=== PATIENT | female | born 1985 | race Caucasian/White ===

== ENCOUNTER 2019-03-20 12:40 | Inpatient (IN) | payer OTHER ==
[~2019-03-20 12:40] MED LIST: Glycopyrrolate 0.2 MG/ML 5 ML SYRINGE ONE; Lidocaine 1% PF 5 ML VIAL ONE; Ondansetron PF 4 MG/2 ML Vial ONE; PROPOFOL 200 MG/20 ML VIAL ONE; Rocuronium Bromide 10 MG/ML (10ML VIAL) ONE; Succinylcholine Chloride 20 MG/ML 10 ml SYRINGE FS ONE
[2019-03-20] MEDS ORDERED: Ketamine 50 MG/ML (10ML VIAL) ONE (12:43)
[2019-03-20] MEDS ORDERED: Adacel (T-DAP) 0.5 ML SYRINGE ONE (12:44)
[2019-03-20] MEDS ORDERED: Fentanyl 100 MCG/2 ML VIAL ONE ×4 (13:19→17:30)
[2019-03-20 13:40] LABS: ALT (SGPT) 11 U/L (8-55); AST (SGOT) 23 U/L (5-34); Albumin 4.3 g/dL (3.5-5.0); Alkaline Phosphatase 49 U/L (40-110); Anion Gap 18 mmol/L (10-20); BUN (Urea Nitrogen) 12 mg/dL (7.0-18.7); Bilirubin, Total 0.2 mg/dL (0.2-1.2); Calc. Creatinine Clearance 0 mL/min (70-130); Calcium 8.9 mg/dL (7.8-10.44); Carbon Dioxide 17 mmol/L (22-29); Chloride 107 mmol/L (98-107); Estimated GFR-MDRD 75; Globulin 3.1 g/dL (2.4-3.5); Glucose 83 mg/dL (70-105); Lipase 28 U/L (8-78); Potassium 3.9 mmol/L (3.5-5.1); Protein, Total 7.4 g/dL (6.0-8.3); Sodium 138 mmol/L (136-145)
[2019-03-20 13:42] LABS: #Eosinphils 0.1 thou/uL (0.0-0.7); #Lymphocytes 2.4 thou/uL (1.20-3.40); #Monocytes 1.1 thou/uL (0.11-0.59); #Neutrophils 9.3 thou/uL (1.40-6.50); %Basophils 0.3 % (0.0-1.0); %Lymphocytes 18.7 % (21.0-51.0); %Monocytes 8.4 % (0.0-10.0); %Neutrophils 71.7 % (42.0-75.0); Hemoglobin 14.6 g/dL (12.0-16.0); Mean Corpuscular HGB CONC 34.6 g/dL (32.0-36.0); Mean Corpuscular Hemoglobin 31.4 pg (27.0-31.0); Mean Corpuscular Volume 90.6 fL (78.0-98.0); Mean Platelet Volume 7.8 fL (7.4-10.4); Platelet Count 303 thou/uL (130-400); RBC Distribution Width 11.2 % (11.5-14.5); Red Blood Cell (RBC) Count 4.66 mill/uL (4.20-5.40); White Blood Cell (WBC) Count 12.9 thou/uL (4.8-10.8)
[2019-03-20] MEDS ORDERED: Ketorolac Tromethamine 30 MG/ML VIAL ONE (13:50)
--- NOTE | 2019-03-20 13:52 | RAD ---
Exam: Right ankle 3 views: HISTORY: Extensive fracture dislocation of the ankle tibiotalar joint with displaced medial malleolar fracture as well as a replaced comminuted fracture through the distal fibular diaphysis. Nondisplaced transverse fracture through the base of the fifth metatarsal. Impression: Very markedly displaced comminuted fracture dislocation of the tibiotalar joint. Comminuted fracture of the distal fibular diaphysis. Nondisplaced transverse fracture through the base of the fifth metatarsal.
[2019-03-20] MEDS ORDERED: Dextrose 5% in Water 1,000 ML IV PRN (13:58)
[2019-03-20] MEDS ORDERED: Dextrose 50% Abboject 50 ML SYRINGE SLOW IVP PRN (13:58)
[2019-03-20] MEDS ORDERED: Gentamicin 80 MG/2 ML VIAL ONE (13:58)
[2019-03-20] MEDS ORDERED: Promethazine HCl 25 MG/ML VIAL IVPB PRN (13:58)
[2019-03-20] MEDS ORDERED: hydrALAZINE 20 MG/ML VIAL SLOW IVP PRN (13:58)
[2019-03-20] MEDS ORDERED: Ondansetron PF 4 MG/2 ML Vial IVP PRN (13:58)
[2019-03-20] MEDS ORDERED: Sodium Chloride 0.9% 0 ML ONE ×2 (14:01→15:04)
[2019-03-20] MEDS ORDERED: Neomycin-Polymyxin 1 ML AMP ONE ×3 (14:04→15:34)
[2019-03-20] MEDS ORDERED: traMADol HCl 50 MG TAB PO PRN ×2 (14:04)
[2019-03-20] MEDS ORDERED: Cyclobenzaprine 10 MG TAB PO PRN (14:04)
[2019-03-20] MEDS ORDERED: Gentamicin Sulfate 80 MG in Premix Bag 1 BAG IVPB SCH (14:15)
[2019-03-20 15:01] LABS: BHCG - Serum Negative (NEGATIVE); Pregs Control Background? CLEAR/WHITE (CLR/WHITE); Pregs Control Bar Appear? YES (CONTROL BAR)
--- NOTE | 2019-03-20 15:23 | RAD ---
Chest one view: HISTORY: Injury from trauma FINDINGS: Heart size is within normal limits. The lungs are clear. No pneumothorax, pleural effusion or other a cute process. IMPRESSION: No significant acute intrathoracic disease.
[2019-03-20] MEDS ORDERED: Bupivacaine HCl 0.5%/Epinephrine 1:200,000/PF 30 ml Vial ONE (16:27)
[2019-03-20] MEDS ORDERED: Ondansetron HCl/PF 4 MG/2 ML Vial IVP PRN (17:09)
[2019-03-20] MEDS ORDERED: Morphine Sulfate 2 MG/ML SYRINGE SLOW IVP PRN (17:09)
[2019-03-20] MEDS ORDERED: PACU-Morphine 4MG/ML VIAL SLOW IVP PRN (17:09)
[2019-03-20] MEDS ORDERED: Meperidine HCl/PF 25 MG/ML VIAL SLOW IVP PRN (17:09)
[2019-03-20] MEDS ORDERED: Promethazine HCl 25 MG/ML VIAL IM PRN (17:09)
[2019-03-20] MEDS ORDERED: Promethazine HCl 25 MG/ML VIAL SLOW IVP PRN (17:09)
[2019-03-20] MEDS ORDERED: HYDROmorphone 2 MG/ML VIAL SLOW IVP PRN (17:09)
--- NOTE | 2019-03-20 17:10 | RAD ---
EXAM: XR Ankle Rt 3 View STANDARD PROVIDED CLINICAL HISTORY: ORIF COMPARISON: Exam earlier same date FINDINGS: Spot fluoroscopic intraoperative images demonstrate interval lateral side plate and screw fixation of distal fibular fracture and cannulated partially threaded lag screw fixation of medial malleolar fracture with associated improved alignment. IMPRESSION: As above.
[2019-03-20] MEDS ORDERED: Acetaminophen 1,000 MG in Premix Bag 1 BAG IVPB SCH (18:00)
--- NOTE | 2019-03-20 18:00 | HP ---
TRAUMA SURGEON: Dr. Castellanos. CONSULTING PHYSICIAN: Dr. De Luna of Orthopedic Surgery. HISTORY OF PRESENT ILLNESS: The patient is a 34-year-old female, who presented to the emergency department via EMS as a level 2 trauma activation after she was ejected from horse. Upon arrival, she had an obvious right ankle fracture dislocation that was open. The patient did receive ketamine and morphine en route as well as additional ketamine in the emergency department. The patient was having conversion reaction at the time of her arrival and reported hallucinations at the time of my evaluation. She received x-rays of her ankle as well as a chest x- ray. Orthopedic Surgery was consulted, who took the patient to the OR for washout and fixation of the right ankle fracture. Upon my evaluation, the patient also complained of right-sided lateral chest tenderness. There was no obvious signs of trauma. The patient denies loss of consciousness and anticoagulation use. She was not ambulatory after her accident. REVIEW OF SYSTEMS: All additional 10-point review of systems negative except as indicated above. PAST MEDICAL HISTORY: None. PAST SURGICAL HISTORY: The patient reports previous surgeries to her right patella and left ACL. SOCIAL HISTORY: The patient is a [id number] mom. She has 3 children and lives with her . She drinks alcohol about once per week. She smokes cigarettes occasionally. She does smoke marijuana on a daily basis. She did have orange juice and vodka this morning during breakfast time. MEDICATIONS: None. ALLERGIES: NO KNOWN DRUG ALLERGIES. PHYSICAL EXAMINATION: VITAL SIGNS: The patient is afebrile, hemodynamically stable at the time of my evaluation. PRIMARY SURVEY: Airway intact. Adequate breath sounds bilaterally. 2+ pulses in the bilateral radials, femorals, and DPs. GCS 15. Gross motor and sensation are intact. No lacerations, bruising, or external bleeding noted at time of my evaluation. Right lower extremity is in a splint and is clean, dry, and intact. SECONDARY SURVEY: HEAD: Normocephalic and atraumatic. No gross palpable skull deformities or tenderness. EYES: Pupils 3 to 2, equal, round, reactive to light bilaterally. ENT: No hemotympanum. No epistaxis. No septal hematoma. Midface stable to manipulation. No blood in the oropharynx. Dentition is intact. No anterior neck injury/crepitus/tenderness. C-SPINE: No step-offs or deformities. Nontender. No C-collar in place. CHEST: Right lateral tenderness. No crepitus. No abrasions or ecchymosis. Equal chest movement. Clear breath sounds. ABDOMEN: Soft, nontender, nondistended. PELVIS: Stable to palpation, nontender. No abrasions or ecchymosis. RECTAL: Deferred. GENITOURINARY: Deferred. EXTREMITIES: Right lower extremity with splint that is clean, dry in place. No abrasions or ecchymosis noted. 2+ pulses in the bilateral radials, femorals, and DPs. BACK/SPINE: No step-offs or deformities or tenderness to palpation of the thoracic or lumbar spine. No abrasions or ecchymosis noted. NEUROLOGIC: 5/5 strength in the bilateral client partner, plantar flexion, and dorsiflexion. Gross normal sensation x4 extremities. LABORATORY FINDINGS: White count 12.9, hemoglobin 14.6, hematocrit 42.2, platelets 303. Sodium 138, potassium 3.9, chloride 107, carbon dioxide 17, BUN 12, creatinine 0.87, glucose 83, total bilirubin 0.2, AST 23, ALT 11, alkaline phosphatase 49, lipase 28. DIAGNOSTIC FINDINGS: X-ray of the right ankle demonstrates a very markedly displaced comminuted fracture dislocation of the joint, comminuted fracture in distal fibular diaphysis, nondisplaced transverse fracture through the base of the fifth metatarsal. Chest x-ray was completed. Report has not yet been generated, but there appears to be no signs of acute trauma. We will follow up at final read when it is available. ASSESSMENT: 1. Status post ejection from horse. 2. Right ankle fracture dislocation, open. 3. Right-sided chest wall tenderness. 4. Right fifth metatarsal fracture at base. 5. Acute traumatic pain secondary to above. PLAN: The patient is being admitted to the surgical floor under the trauma team. Dr. De Luna of Orthopedic Surgery has seen the patient and is taking the patient to the OR today for washout and fixation of the ankle fracture. She is n.p.o. with normal saline at 120 an hour. She is going to receive Ancef and gentamicin per the recommendations of Dr. De Luna. She will also receive oral and IV pain medications. Both scheduled and p.r.n. Postoperatively, the patient will start to work with Physical Therapy and will likely be discharged home tomorrow with p.o. antibiotics once her pain is controlled and she has had an opportunity to work with Physical Therapy to demonstrate that she can move around safely. This patient was discussed with Dr. Castellanos before this dictation. Job ID: [id number] MTDD
[2019-03-20] MEDS: Sodium Chloride 0.9% 1,000 ML IV SCH ×2 (18:31→23:54)
[2019-03-20] MEDS: Ketorolac Tromethamine 30 MG/ML VIAL IVP SCH ×2 (18:32→23:53)
[2019-03-20] MEDS: Gabapentin 300 MG CAP PO SCH ×2 (18:32→20:30)
[2019-03-20 18:52] VITALS: BMI 29.8
[2019-03-20] MEDS: Senokot S 8.6-50 MG TAB PO SCH (20:31)
[2019-03-20] MEDS: Morphine 4 MG/ML VIAL SLOW IVP PRN (20:49)
[2019-03-20] MEDS: CEFAZOLIN 2 GM in Premix Bag 1 BAG IVPB SCH (20:49)
--- NOTE | 2019-03-20 23:35 | OP ---
DATE OF PROCEDURE: 03/20/2019 PREOPERATIVE DIAGNOSIS: Open bimalleolar fracture dislocation of the right ankle. POSTOPERATIVE DIAGNOSIS: Open bimalleolar fracture dislocation of the right ankle. PROCEDURE: 1. Irrigation and debridement of the right ankle. 2. Open reduction and internal fixation of bimalleolar fracture of the right ankle. SURGEON: Dr. Ned De Luna. ANESTHESIA: General. TECHNIQUE: The patient was given preoperative IV antibiotics including Ancef and gentamicin. The patient was taken to the operating room. Satisfactory general anesthesia was performed. The right foot, ankle, and leg were sterilely prepped and draped in usual fashion. After exsanguination, tourniquet was raised to 250 mmHg at the proximal leg region. The patient had open wound transversely on the medial aspect of the ankle with the broken medial malleolus bone exposed. There was some dirt and grass in the wound, which easily pieces were removed and then the ankle joint was copiously irrigated with antibiotic solution using the high-speed neurology technician. There was some dirt in portions of the periosteum, which were debrided. The transverse laceration was approximately 3 inches in length. The saphenous vein and the tarsal canal tendons and neurovascular structures were identified and were all intact. An additional incision was made in the midportion of the transverse laceration distally for 1 inch and the medial malleolus was reduced and then internally fixed with two 4.0 cannulated screws. A longitudinal incision was made in the lateral aspect of the ankle centered over the comminuted distal shaft fracture of the fibula and the fracture was reduced and internally fixed using a [employer]ynthe[employer] third tubular locking plate using two 3.5 cortical screws and one 3.5 locking screw, both proximal and distal to the fracture. The two middle holes were left open since they were over the area of the comminution. This was all performed under fluoroscopic visualization and showed good reduction of the medial and lateral malleolus and then under fluoroscopic visualization, the ankle was stressed laterally and the ankle did not open indicating that the interosseous ligament was stabilized with the plate and screws. The medial and lateral wounds were then again copiously irrigated with antibiotic solution using the high-speed neurology technician and then they were closed using 0 Vicryl for the fat and subcutaneous tissue, and the skin was closed with 3-0 Rapide. The wounds were then infiltrated with a total of 30 mL of 0.5% Marcaine with epinephrine. Sterile dressing was applied along with a tall boot. Tourniquet was released. The patient was awakened, extubated, and transferred to recovery room in stable condition. ESTIMATED BLOOD LOSS: None. COMPLICATIONS: None. TOURNIQUET TIME: 81 minutes. Job ID: [id number]
[2019-03-20] MEDS: traMADol HCl 50 MG TAB PO SCH (23:52)
[2019-03-20] MEDS: Acetaminophen 500 MG TAB PO SCH (23:52)
[2019-03-20] MEDS ORDERED: Scopolamine 1.5 mg/72 hour Patch TD SCH (23:59)
[2019-03-21] MEDS: Morphine 4 MG/ML VIAL SLOW IVP PRN ×2 (03:08→13:39)
[2019-03-21] MEDS: CEFAZOLIN 2 GM in Premix Bag 1 BAG IVPB SCH ×2 (05:14→13:08)
[2019-03-21] MEDS: Acetaminophen 500 MG TAB PO SCH ×2 (05:15→11:43)
[2019-03-21] MEDS: Ketorolac Tromethamine 30 MG/ML VIAL IVP SCH ×2 (05:15→11:48)
[2019-03-21] MEDS: traMADol HCl 50 MG TAB PO SCH ×2 (05:15→11:44)
[2019-03-21 06:21] LABS: #Basophils 0.2 thou/uL (0.0-0.2); #Lymphocytes 1.4 thou/uL (1.20-3.40); #Neutrophils 14.7 thou/uL (1.40-6.50); %Eosinophils 0.2 % (0.0-10.0); %Lymphocytes 8.2 % (21.0-51.0); %Monocytes 5.5 % (0.0-10.0); %Neutrophils 85.1 % (42.0-75.0); Hemoglobin 13.3 g/dL (12.0-16.0); Mean Corpuscular HGB CONC 33.8 g/dL (32.0-36.0); Mean Corpuscular Hemoglobin 30.9 pg (27.0-31.0); Mean Corpuscular Volume 91.5 fL (78.0-98.0); Mean Platelet Volume 8.1 fL (7.4-10.4); Platelet Count 285 thou/uL (130-400); RBC Distribution Width 11.3 % (11.5-14.5); Red Blood Cell (RBC) Count 4.31 mill/uL (4.20-5.40); White Blood Cell (WBC) Count 17.3 thou/uL (4.8-10.8)
[2019-03-21 06:46] LABS: Anion Gap 13 mmol/L (10-20); BUN (Urea Nitrogen) 8 mg/dL (7.0-18.7); Calc. Creatinine Clearance 132 mL/min (70-130); Calcium 8.4 mg/dL (7.8-10.44); Carbon Dioxide 19 mmol/L (22-29); Chloride 108 mmol/L (98-107); Estimated GFR-MDRD 82; Glucose 137 mg/dL (70-105); Phosphorus 3.1 mg/dL (2.3-4.7); Potassium 4.1 mmol/L (3.5-5.1); Sodium 136 mmol/L (136-145)
[2019-03-21] MEDS ORDERED: PHOS-NAK 1 PKT PACK PO SCH (07:30)
[2019-03-21] MEDS: Senokot S 8.6-50 MG TAB PO SCH (08:41)
[2019-03-21] MEDS: Gabapentin 300 MG CAP PO SCH ×2 (08:42→13:39)
[2019-03-21] MEDS ORDERED: Polyethylene Glycol 3350 17 GM Packet PO SCH (09:00)
[2019-03-21] MEDS ORDERED: Enoxaparin Sodium 30 MG/0.3 ML SYRINGE SC SCH (09:00)
[2019-03-21] MEDS ORDERED: Gentamicin Sulfate 500 MG in Sodium Chloride 0.9% 100 ML IVPB SCH (09:00)
[2019-03-21] MEDS ORDERED: FLU VACC QS2019-20(6MOS UP)/PF 60 MCG/0.5 ML SYRINGE IM ONE (09:00)
[2019-03-21] MEDS: Sodium Chloride 0.9% 1,000 ML IV SCH (09:51)
[2019-03-21 11:50] VITALS: BP 111/69; TEMP 98.2
--- NOTE | 2019-03-21 11:50 | DIS ---
DATE OF ADMISSION: 03/20/2019 DATE OF DISCHARGE: 03/21/2019 ADMISSION DIAGNOSES: Fall from horse, right ankle fracture, right fifth metatarsal fracture, and right chest wall contusion. DISCHARGE DIAGNOSES: Fall from horse, right ankle fracture, right fifth metatarsal fracture, and right chest wall contusion. CONSULTING PHYSICIAN: Dr. De Luna of Orthopedic Surgery. PROCEDURES: The patient went to the OR on March 20, 2019, and had an I and D of the right ankle and open reduction and internal fixation. HOSPITAL COURSE: The patient is a 34-year-old female presented to the emergency department via EMS as a level 2 trauma activation after she was ejected from horse. The patient reports no loss of consciousness. Upon evaluation, it was determined that the patient had a right ankle fracture, right fifth metatarsal fracture, and right-sided chest wall contusion. She was admitted to the surgical floor under the trauma team and went to the OR with Dr. De Luna for an I and D of the right ankle as well as an ORIF. Postoperatively, she was transferred to the floor. She was tolerating a regular diet. Pain was well controlled and she worked with Physical and Occupational Therapy before discharge. The patient was voiding without difficulties. DISCHARGE DISPOSITION: Home. DISCHARGE CONDITION: Satisfactory. PHYSICAL EXAMINATION: VITAL SIGNS: Temperature 98.1, pulse 86, respirations 16, oxygen saturation 96%, blood pressure 99/62. GENERAL: Well-appearing young female, sitting up in bed with no signs of acute distress. PULMONARY: Equal chest rise and fall. Clear breath sounds bilaterally. No signs of acute respiratory distress. CARDIAC: Regular rate and rhythm. No murmurs, gallops, or rubs. GASTROINTESTINAL: Soft, nontender, nondistended. EXTREMITIES: 2+ pulses in all extremities. Gross motor and sensation are intact. Right lower extremity in walking boot with dressing underneath that is clean, dry, and intact. NEUROLOGIC: GCS is 15. DISCHARGE INSTRUCTIONS: The patient will be discharged home. Nonweightbearing on the right lower extremity. Otherwise, activity as tolerated. Regular diet. She will have crutches. DISCHARGE MEDICATIONS: Include Tylenol, ibuprofen, Flexeril, gabapentin, tramadol, and Bactrim for 14 days as the fracture was open. FOLLOWUP APPOINTMENTS: The patient is to follow up within [address] De Luna here in [place] or with the orthopedic surgeon near her home. The patient lives closer to [place] and is familiar with orthopedic surgeon there. This is a summary of the patient's hospitalization. For full details, please see her medical record in its entirety. Job ID: [id number]
--- NOTE | 2019-03-22 09:09 | PRG ---
DATE OF SERVICE: 03/20/2019 SUBJECTIVE: Patient was seen this evening on the surgical floor. The patient is awake, alert, in no distress. The patient is postop earlier today irrigation and debridement of right ankle and open reduction and internal fixation of bimalleolar right ankle fracture. She reports increased pain and nausea. Vitals are stable and she is afebrile. Right lower extremity splint is clean dry and intact. Plan: Schedule tramadol for pain, place a scopolamine patch for nausea. Have PT and OT work with patient tomorrow morning. If pain id controlled and she is able to ambulate safely she should be able to be discharged home tomorrow. The plan was discussed with the patient who agrees. Job ID: [id number] MTDD
== END 2019-03-21 14:00 | disposition home or self-care (01) | DRG 494 ==
LOC: ERS 12:40 → SDC/OP 13:46 → SURG A 18:21
PROVIDERS: ADMIT Surgery; ATTEND Surgery
PROC: 0QSJ04Z Reposition Right Fibula with Internal Fixation Device, Open Approach (ICD-10-PCS; principal; 2019-03-20)
PROC: 0QSG04Z Reposition Right Tibia with Internal Fixation Device, Open Approach (ICD-10-PCS; 2019-03-20)
DX: S82.841B Displaced bimalleolar fracture of right lower leg, initial encounter for open fracture type I or II (principal); F17.210 Nicotine dependence, cigarettes, uncomplicated; S92.354A Nondisplaced fracture of fifth metatarsal bone, right foot, initial encounter for closed fracture; S20.211A Contusion of right front wall of thorax, initial encounter; V80.010A Animal-rider injured by fall from or being thrown from horse in noncollision accident, initial encounter
CPT/HCPCS: 36415; 71045; 76000; 80048; 80053; 83690; 83735; 84100; 84703; 85025; 86850; 86900; 86901; 90715; C1713; C1769; G0390; J0131; J0670; J0690; J1580; J1650; J1885; J2001; J2270; J2405; J2704; J3010; J3490